=== PATIENT | female | born 1995 | race Caucasian/White ===

== ENCOUNTER 2023-11-20 04:24 | Emergency (ER) | payer SELFPAY ==
[~2023-11-20] VITALS: Ht 162.6 cm; Wt 54.4 kg
[2023-11-20 04:30] VITALS: BP 125/73; PULSE 101; RESP 20; TEMP 97.2; O2SAT 100
[2023-11-20 04:48] VITALS: BP 125/73; PULSE 101; RESP 20; TEMP 97.2; O2SAT 100
== END 2023-11-20 04:46 ==
LOC: MED 04:24
CPT/HCPCS: 99283